=== PATIENT | female | born 1955 | race Caucasian/White ===

== ENCOUNTER 2020-09-20 09:56 | Day surgery (SDC) | payer MEDICARE ==
[2020-09-13 10:56] LABS: BASOPHILS % (AUTO) 0.5 % (0-1); EOSINOPHILS # (AUTO) 0.1 X10'3 (0-0.9); EOSINOPHILS % (AUTO) 1.4 % (0-6); LYMPHOCYTES # (AUTO) 0.9 X10'3 (1.1-4.8); LYMPHOCYTES % (AUTO) 12.9 % (21-51); MEAN CORPUSCULAR HEMOGLOBIN 30.2 PG (27.0-31.0); MEAN CORPUSCULAR HGB CONC 33.3 g/dL (33.0-36.5); MEAN CORPUSCULAR VOLUME 90.8 FL (78-98); MEAN PLATELET VOLUME 6.2 FL (7.4-10.4); MONOCYTES # (AUTO) 0.5 X10'3 (0-0.9); MONOCYTES % (AUTO) 6.3 % (2-12); NEUTROPHILS # (AUTO) 5.8 X10'3 (1.8-7.7); NEUTROPHILS % (AUTO) 78.9 % (42-75); PRE OP HEMATOCRIT 36.8 % (35.0-45.0); PRE OP HEMOGLOBIN 12.2 g/dL (12.0-16.0); PRE OP PLATELET COUNT 323 X10'3 (140-440); RED BLOOD COUNT 4.05 X10'6 (4.20-5.60); RED CELL DISTRIBUTION WIDTH 13.4 % (11.5-14.5)
[2020-09-13 11:08] LABS: ALKALINE PHOSPHATASE 85 IU/L (46-116); BLOOD UREA NITROGEN 16 MG/DL (7-18); CALCIUM 9.2 MG/DL (8.5-10.1); CHLORIDE 103 MMOL/L (99-107); CREATININE 0.84 MG/DL (0.40-0.90); PRE OP ALT 25 U/L (30-65); PRE OP ANION GAP 7 (8-16); PRE OP AST 14 U/L (10-37); PRE OP BILIRUB, TOTAL 0.3 MG/DL (0.0-1.0); PRE OP GLUCOSE 97 MG/DL (70-104); PRE OP POTASSIUM 4.4 MMOL/L (3.4-5.1); PRE OP SODIUM 141 MMOL/L (135-145); TOTAL CARBON DIOXIDE 30.8 MMOL/L (24-32); eGFR 69 ML/MIN
[~2020-09-20] VITALS: Ht 162.6 cm; Wt 77.1 kg
[2020-09-20] VITALS (10 sets, daily range): BP systolic 108–157; BP diastolic 63–82
[~2020-09-20 09:56] MED LIST: BUPIVAcaine/PF 2.5mg/ml (0.25%) 10ml vial ONE; BUPR1PAT20 TOP; CA C1TAB89 PO; CYCL5TAB PO; DULO60CA65 PO; HYDR-3972 PO; LEVO100T9 PO; LIDOcaine 0.5% (5mg/ml) 50ml vial ONE; LOSA50TA64 PO; MONT10TA26 PO; QUET100T33 PO; [UNRECOGNIZED DRUG - OTHER] PO; [UNRECOGNIZED DRUG - OTHER] PO; [UNRECOGNIZED DRUG - OTHER] PO; ceFAZolin 2gm in dextrose, iso 50 ML IV ONE; famotidine 20mg tablet PO ONE; ringers solution, lacted 1,000 ML IV SCH
[2020-09-20] MEDS ORDERED: meperidine/PF 25mg/ml syringe IV PRN ×3 (10:55)
[2020-09-20] MEDS ORDERED: morphine 4 MG/ML inj SYRINge IV PRN (10:55)
[2020-09-20] MEDS ORDERED: ringers solution, lacted 1,000 ML IV SCH (10:55)
[2020-09-20] MEDS ORDERED: proCHLORperazine 10 MG/2 ml inj IV PRN (10:55)
[2020-09-20] MEDS ORDERED: morphine 2 MG/ML inj. syringe IV PRN (10:55)
[2020-09-20] MEDS ORDERED: ondansetron/PF 4mg/2ml inj IV PRN (10:55)
[2020-09-20] MEDS ORDERED: fentaNYL/PF 50MCG/1 ML 2ML syringe ONE (12:22)
[2020-09-20] MEDS ORDERED: MIDAZolam 5mg/5ml vial ONE (12:22)
[2020-09-20] MEDS ORDERED: propofol inj 20 ML IV ONE (13:17)
--- NOTE | 2020-09-20 13:26 | NUR ---
Received from OR via [facility] , accompanied by Anesthesiologist LIONEL and report given by Anesthesiolgist. PATIENT JEFFREY ZAVALA TO LEFT UE, CDI AT THIS TIME. + CAP REFILL AND DECREASED SENSATION. ICE DONNED IN RR. VSS Addendum: 09/20/20 at 1335 by Chilo Davila RN, RN Amended: Links added.
[2020-09-20] MEDS ORDERED: HYDROcodone/acetaminophen 10/325mg tab PO ONE (13:45)
--- NOTE | 2020-09-20 14:56 | NUR ---
PATIENT AND FAMILY AND THEY HAVE VERBALIZED UNDERSTANDING, OPPORTUNITY TO ASK QUESTIONS GIVEN AND PATIENT COMFORTABLE WITH DC. IV TAKEN OUT WITHOUT COMPLICATION. PATIENT HAS MET ALL DC CRITERIA FOR DC HOME. I HAVE REVIEWED D/C INSTRUCTIONS WITH OUT VIA WHEELCHAIR WHERE PATIENT WAS TAKEN HOME WITH ALL BELONGINGS. FAMILY GAVE PATIENT TRANSPORT HOME. Addendum: 09/20/20 at 1502 by Chilo Davila RN, RN Amended: Links added.
== END 2020-09-20 14:56 | disposition home or self-care (01) ==
LOC: PAS 09:56
PROVIDERS: ATTEND Orthopaedic Surgery Hand Surgery
DX: G56.02 Carpal tunnel syndrome, left upper limb (principal); G56.22 Lesion of ulnar nerve, left upper limb; M18.12 Unilateral primary osteoarthritis of first carpometacarpal joint, left hand; I10 Essential (primary) hypertension; F32.9 Major depressive disorder, single episode, unspecified; Z20.828 Contact with and (suspected) exposure to other viral communicable diseases; Z79.899 Other long term (current) drug therapy; Z98.1 Arthrodesis status; Z98.890 Other specified postprocedural states; Z87.891 Personal history of nicotine dependence; Z88.8 Allergy status to other drugs, medicaments and biological substances; Z91.09 Other allergy status, other than to drugs and biological substances
CPT/HCPCS: 25310; 25447; 36415; 64718; 64721; 80053; 82948; 85025; 87635; 93005; J2001; J2175; J2250; J2270; J2704; J3010; J3490; J7120; A4215; A4618; A6449; A7000